=== PATIENT | male | born 1980 | race Caucasian/White ===

== ENCOUNTER 2020-09-22 13:12 | Emergency (ER) | payer BC ==
--- OUTSIDE RECORDS SUMMARY | 2020-09-22 13:16 | XMS REPORT | Continuity of Care Document ---
:1980 Author Organization [facility] t Address [address] [place] [address] Dr. Hector [address] [place] [address] Care Team Providers Name Role Phone Razia SCHWARTZ Attending Clinician Unavailable SUSHILA Admitting Clinician Unavailable DR Razia LUNDBERG Admitting Clinician Unavailable Problems This patient has no known problems. Allergies, Adverse Reactions, Alerts This patient has no known allergies or adverse reactions. Social History Smoking Status Start Date Stop Date Source Never smoker [facility] ([facility]) Medications Ordered Filled Start Stop Current Ordering Indication Dosage Frequency Signature Comments Components Source Medication Medication Date Date Medication? Clinician (SIG) Name Name Cephalexin Cephalexin Yes 500mg BID [facility] Doxycycline Doxycycline Yes 100mg BID [facility] Hy[facility]ate [facility]ate [facility] ([facility]) Magnesium Magnesium Yes 1applic BID [facility] Sulfate [facility] ([facility]/SA) Prednisone Prednisone Yes 20MG [facility] 20 [facility] Oral 20 MG Oral [facility] - Tablet [facility] (LUF/LI V/SA) Vital Signs Vital Name Observation Time Observation Value Comments Source Pulse Rate 2018-10-04 13:02:00 69 /min [facility] Respiratory Rate 2018-10-04 13:02:00 17 /min [facility] (LUF/[facility]) O2% BldC Oximetry 2018-10-04 13:02:00 100 % [facility] (LUF/[facility]/SA) BP Systolic 2018-10-04 13:02:00 155 mm[Hg] [facility] ([facility]) BP Diastolic 2018-10-04 13:02:00 91 mm[Hg] [facility] ([facility] Body Temperature 2018-10-04 07:56:00 98 F DOUG Steinberg [facility] (LUF/RILEY/SA) Weight Measured 2018-10-03 23:40:00 280.86 lbs DOUG Laureano t [facility] (LUF/RILEY/SA) Procedures This patient has no known procedures. Encounters Start End Encounter Admission Attending Care Care Encounter Source Date/Time Date/Time Type Type Clinicians Facility Department ID 2018-10-03 2018-10-04 CE[facility]ULITIS E [facility] [id number] [facility] [address] ([address], V/SA) [place] [id number] 2017-12-15 2017-12-15 CHEST PAIN 3 TOÑO, [place] [id number] 12:26:00 23:59:00 ON HEIKE A [facility]AXTON [facility] [address] ([address], V/SA) [place] [id number] Results Test Description Test Time Test Comments Results Result Comments Source [facility] 2018-10-04 04:51:00 Test Item Value Reference Range Interpretation Comme nts Sodium (test code = NA) 142 mmol/l 137-145 Potassium (test code = K) 4.3 mmol/l 3.5-5.1 Chloride (test code = CL) 107 mmol/l 98-107 Calcium (test code = 8.7 mg/dl 8.5-10.1 CALC) CO2 (test code = CO2) 28 mmol/l 21-32 Glucose (test code = GLU) 119 mg/dl 74-106 H BUN (test code = BUN) 14.0 mg/dl 7.0-18.0 Creatinine (test code = 0.9 mg/dl 0.5-1.3 CREA) EGFR if >60 mL/min/1.73m\\S\\2 (test code = EGFRAA) EGFR if Non- >60 mL/min/1.73m\\S\\2 Estimated Glomerular Peruvian (test code = Filtra tion Rate (eGFR) EGFRNA) Reference Inter vals Decision Points for 18 y ears and older and avera ge body mass: >= 60 Does not exclu de kidney disease. 30 - 5 9 Suggests modera te chronic kidney disease and indicates the need for fu rther investigation i ncluding assessment of p roteinuria and ca rdiovascular factors. < 30 Usually indicat es a need for referral for as sessment and management of c hronic kidney failure. CBC WITH AUTO [id number] 04:47:00 Test Item Value Reference Range Interpretation Comments WBC (test code = 11.75 4.80-10.80 H WBC) 10\\S\\3/ul RBC (test code = 4.06 10\\S\\6/ul 4.70-6.10 L RBC) Hemoglobin (test 13.3 gm/dl 14.0-18.0 L code = HGB) Hematocrit (test 37.1 % 42.0-50.0 L code = HCT) MCV (test code = 91.4 fL 80.0-94.0 MCV) MCH (test code = 32.8 pg 27.0-31.0 H MCH) MCHC (test code = 35.8 gm/dl 33.0-37.0 MCHC) RDW (test code = 11.5 % 11.5-14.5 RDWVC) Platelet (test code 209 10\\S\\3/ul 130-400 = PLT) MPV (test code = 10.7 fL 7.4-10.4 A "NOT MEASUR ED" MPV) RESULTS ARE DIS PLAYED WHEN THE INSTRU MENT HAS A SUPPRESSE D OR UNREPORTABLE RE SULT. THIS WILL MOST OFTEN HAPPEN WITH THE MPV WHEN THERE IS A N ABNORMAL PLATEL ET DISTRIBUTION DU E TO A CRITICAL LOW VA LUE OR PLATELET CLUMPI NG. THE RDW MAY BE SUPPRESSED IF T HERE ARE MULTIPLE PE AKS PRESENT ON THE RBC HISTOGRAM. IN THIS CASE, A MANUAL REVIEW OF THE SLIDE WI LL BE PERFORMED, AND RBC MORPHOLOGY WILL BE NOTED ON THE RE PORT. NE% (test code = 74.1 % 42.0-75.0 NE) LY% (test code = 19.2 % 13.0-42.0 LY) MO% (test code = 6.0 % 4.0-14.0 MO) EO% (test code = 0.0 % 1.0-5.0 L EO) BA% (test code = 0.2 % 0.0-3.0 BA) IG% (test code = 0.5 % 0.0-0.4 H IG%) ED2 XR HAND MIN [id number] 10:04:33Procedure: ED2 XR HAND MIN 3VWS Exam Date: 10/03/2018 9:18 AMOrdering Provider: MERLINE ABDOClinical Indication: [id number]: Swelling of handComparison: None.Findings:Bones are in normal alignment. Joint spaces preserved. No acute fracture ordislocation. No radio- opaque foreign body. Soft tissues swelling of the seconddigit.Impression:No acute fracture or dislocation. No radio-opaque foreign body. No evidence foracute osteomyelitis.This final report was electronically signed by Dr Jeanmarie Rossi DO 10/03/20189:58 AMDictated By: BITA ROSSIINDate: 10/03/2018 09:58ED2 [id number] 09:44:00 Test Item Value Reference Range Interpretation Comments Sodium (test code = NA) 147 mmol/l 128-145 H Potassium (test code = K) 4.4 mmol/l 3.6-5.1 CO2 (test code = CO2) 31 mmol/l 18-33 Chloride (test code = CL) 109 mmol/l 98-108 H Glucose (test code = GLU) 86 mg/dl 73-118 Calcium (test code = CALC) 9.3 mg/dl 8.0-10.3 BUN (test code = BUN) 13 mg/dl 7-22 Creatinine (test code = CREA) 0.8 mg/dl 0.6-1.2 Alkaline Phos (test code = ALKP) 48 U/L 42-141 ALT (SGPT) (test code = ALT) 27 U/L 10-47 AST (SGOT) (test code = AST) 27 U/L 11-38 Total Bilirubin (test code = TBIL) 0.6 mg/dl 0.2-1.6 Albumin (test code = ALB) 3.6 gm/dl 3.3-5.5 T Protein (test code = TP) 7.1 gm/dl 6.4-8.1 ED2 [id number] 09:33:00 Test Item Value Reference Range Interpretation Comments WBC (test code = WBC) 4.8 10\\S\\9/L 3.5-10.0 LY% (test code = LY) 44.7 % 15.0-50.0 MIDS% (test code = MIDS) 7.3 % 2.0-15.0 Granulocytes % (test code = 48.0 % 35.0-80.0 GRA%) Lymphocytes (test code = 2.1 10\\S\\9/L 0.5-5.0 LYMPH) MID (test code = MID) 0.4 10\\S\\9/L 0.1-1.5 Granulocytes (test code = 2.3 10\\S\\9/L 1.2-8.0 GRAN) RBC (test code = RBC) 4.60 10\\S\\12/L 3.50-5.50 Hemoglobin (test code = HGB) 14.4 gm/dl 11.5-16.5 Hematocrit (test code = HCT) 42.5 % 35.0-55.0 MCV (test code = MCV) 92.3 fL 75.0-100.0 MCH (test code = MCH) 31.3 pg 25.0-35.0 MCHC (test code = MCHC) 33.9 gm/dl 31.0-38.0 RDW % (test code = RDW%) 12.6 % 11.0-16.0 Platelet (test code = PLT) 188 10\\S\\9/L 100-400 MPV (test code = MPV) 8 fL 8.0-11.0 A TIC XR CHEST 2 PA [id number] 16:18:29Procedure: TIC XR CHEST 2 PA LATERALOrder Date: 12/15/2017 12:43 PMOrdering Provider: DR HEIKE Ackermaninical Indication: chest pain on breathingComparison: NoneFindings:Cardiac size is normal.Pulmonary vasculature is normal.Mediastinal contour is normal.Aortic contour is normal.There is no consolidation or effusion.There is no mass or pneumothorax.There is no evidence of active tuberculosis.There is no skeletal abnormality.Impression: Negative PA and lateral views of the chest.This final report was electronically signed by Dr Bossman De Paz MD 12/15/20174:12 PMDictated By: BOSSMAN DE PAZDate: 12/15/2017 16:18
[2020-09-22] MEDS ORDERED: HYDROCODONE/APAP 10/325 TAB ONE (14:32)
--- NOTE | 2020-09-22 14:52 | ER ---
Nurse's Notes [facility] Name: Connor Denny Age: 40 yrs Sex: Male : 1980 Arrival Date: 09/22/2020 Time: 13:13 Bed 17 Private MD: Diagnosis: Unspecified dislocation of left shoulder joint Presentation: 09/22 13:30 Chief complaint: Patient states: R shoulder pain and possible dislocation after falling ss [place]. Coronavirus screen: Client denies travel out of the [place] in the last 14 days. Ebola Screen: Patient denies exposure to infectious person. Patient denies travel to an Ebola-affected area in the 21 days before illness onset. Initial Sepsis Screen: Does the patient meet any 2 criteria? No. Patient's initial sepsis screen is negative. Does the patient have a suspected source of infection? No. Patient's initial sepsis screen is negative. Risk Assessment: Do you want to hurt yourself or someone else? Patient reports no desire to harm self or others. Onset of symptoms was September 22, 2020. 13:30 Method Of Arrival: Ambulatory ss 13:30 Acuity: RAY 3 ss Historical: - Allergies: 13:34 No Known Allergies; ss - Home Meds: 13:34 Lexapro Oral [Active]; ss - PMHx: 13:34 None; ss - PSHx: 13:34 L shoulder; ss - Immunization history:: Adult Immunizations up to date. - Social history:: Smoking status: Patient denies any tobacco usage or history of. Screenin:06 Abuse screen: Denies threats or abuse. Denies injuries from another. Nutritional zb screening: No deficits noted. Tuberculosis screening: No symptoms or risk factors identified. Fall Risk None identified. Assessment: 14:06 General: Appears uncomfortable, Behavior is restless. Pain: Complains of pain in zb anterior aspect of right shoulder and posterior aspect of right shoulder Pain currently is 8 out of 10 on a pain scale. Quality of pain is described as aching, dull, tender. Neuro: Level of Consciousness is awake, alert, obeys commands, Oriented to person, place, time, situation. Cardiovascular: Capillary refill < 3 seconds Patient's skin is warm and dry. Respiratory: Airway is patent Respiratory effort is even, unlabored. Musculoskeletal: Range of motion: limited in right shoulder Swelling present in posterior aspect of right shoulder. Injury Description: right shoulder dislocation. 14:45 Reassessment: ecp at bedside discussing care. zb 14:56 Reassessment: Patient appears in no apparent distress at this time. Patient and/or zb family updated on plan of care and expected duration. Pain level reassessed. Patient is alert, oriented x 3, equal unlabored respirations, skin warm/dry/pink. patient ambulated out w/ . sling in place. Vital Signs: 13:30 BP 151 / 101; Pulse 92; Resp 18; Temp 97.8(TE); Pulse Ox 95% ; Weight 124.74 kg; Height ss 6 ft. 2 in. (187.96 cm); Pain 7/10; 14:57 BP 140 / 90; Pulse 88; Resp 16; Pulse Ox 100% on R/A; zb 13:30 Body Mass Index 35.31 (124.74 kg, 187.96 cm) ss ED Course: 13:13 Patient arrived in ED. mr 13:26 Michael Zaman, RHETT is PHCP. pm1 13:26 Quinton Samuels MD is Attending Physician. pm1 13:33 Triage completed. ss 13:34 Arm band placed on right wrist. ss 13:55 Shoulder Right (2 View) XRAY In Process Unspecified. EDMS 13:56 Court Engel, IMMANUEL is Primary Nurse. zb 14:49 Shoulder (1 View) XRAY In Process Unspecified. EDMS 14:57 Patient has correct armband on for positive identification. Bed in low position. Call zb light in reach. Side rails up X 1. Pulse ox on. NIBP on. 14:57 Sling applied to right arm. zb 14:57 No provider procedures requiring assistance completed. Patient did not have IV access zb during this emergency room visit. Administered Medications: 14:14 Drug: [place] (HYDROcodone-acetaminophen) 10 mg-325 mg 1 tabs {Note: RASS 0.} Route: PO; zb Outcome: 14:51 Discharge ordered by . pm1 14:57 Discharged to home ambulatory, with family. zb 14:57 Condition: stable 14:57 Discharge instructions given to patient, Instructed on discharge instructions, follow up and referral plans. Demonstrated understanding of instructions, follow-up care. 14:58 Patient left the ED. zb Signatures: Dispatcher [employer] ED Balta Hetal mr Marion Walker RN RN ss Michael Zaman, RHETT METAL CONTAINER MAKER pm1 Court Engel RN RN zsharmin Corrections: (The following items were deleted from the chart) 14:14 14:14 [place] (HYDROcodone-acetaminophen) 10 mg-325 mg 1 tabs PO zb zb
--- NOTE | 2020-09-22 14:52 | EDPHYS ---
Physician Documentation [facility] Name: Connor Denny Age: 40 yrs Sex: Male : 1980 Arrival Date: 09/22/2020 Time: 13:13 Bed 17 Private MD: ED Physician Quinton Samuels HPI: 09/22 14:09 This 40 yrs old Male presents to ER via Ambulatory with complaints of pm1 Shoulder Injury. 14:09 The patient or guardian complains of dislocation. right shoulder. Context: The problem pm1 [place] resulted from a fall, while playing football. Onset: The symptoms/episode began/occurred just prior to arrival. Modifying factors: the symptoms are alleviated by remaining still, The symptoms are aggravated by movement. Associated signs and symptoms: Pertinent negatives: Numbness in right arm tingling, Weakness in right arm. Severity of symptoms: in the emergency department the symptoms are unchanged. Treatment prior to arrival includes: no previous treatment. The patient has experienced similar episodes in the past, several times. The patient has not recently seen a physician. Historical: - Allergies: 13:34 No Known Allergies; ss - Home Meds: 13:34 Lexapro Oral [Active]; ss - PMHx: 13:34 None; ss - PSHx: 13:34 L shoulder; ss - Immunization history:: Adult Immunizations up to date. - Social history:: Smoking status: Patient denies any tobacco usage or history of. ROS: 14:09 Constitutional: Negative for fever, chills, and weight loss, Cardiovascular: Negative pm1 for chest pain, palpitations, and edema, Respiratory: Negative for shortness of breath, cough, wheezing, and pleuritic chest pain. 14:09 Skin: Negative for injury, rash, and discoloration, Neuro: Negative for headache, weakness, numbness, tingling, and seizure. 14:09 MS/extremity: Positive for pain, of the right shoulder, Negative for paresthesias, tingling. 14:09 All other systems are negative. Exam: 14:09 Constitutional: This is a well developed, well nourished patient who is awake, alert, pm1 and in no acute distress. Head/Face: Normocephalic, atraumatic. 14:09 Skin: Warm, dry with normal turgor. Normal color with no rashes, no lesions, and no evidence of cellulitis. 14:09 Eyes: Exam is negative for acute changes, Extraocular movements: intact throughout, Conjunctiva: normal. 14:09 ENT: Mouth: Lips: normal, Oral mucosa: normal, pink and intact, moist. 14:09 Cardiovascular: Rate: normal, Rhythm: regular, Pulses: no pulse deficits are appreciated. 14:09 Respiratory: Exam negative for acute changes, respiratory distress, shortness of breath. 14:09 Musculoskeletal/extremity: Extremities: grossly normal except: noted in the right shoulder: deformity, Circulation is intact in all extremities. Pulses: noted to be 2+ in the right radial artery, the right hand Sensation intact. 14:09 Neuro: Exam negative for acute changes, Orientation: is normal, Mentation: is normal, Motor: is normal, moves all fours. Vital Signs: 13:30 BP 151 / 101; Pulse 92; Resp 18; Temp 97.8(TE); Pulse Ox 95% ; Weight 124.74 kg; Height ss 6 ft. 2 in. (187.96 cm); Pain 7/10; 14:57 BP 140 / 90; Pulse 88; Resp 16; Pulse Ox 100% on R/A; zb 13:30 Body Mass Index 35.31 (124.74 kg, 187.96 cm) ss Procedures: 14:54 Reduction: of the right shoulder, using traction, Immobilized with shoulder pm1 immobilizer. Patient tolerated well. Post reduction film - reveals normal alignment. MDM: 13:34 Patient medically screened. pm1 14:50 Data reviewed: vital signs. Data interpreted: Pulse oximetry: on room air is 95 %. pm1 Interpretation: normal. Counseling: I had a detailed discussion with the patient and/or guardian regarding: the historical points, exam findings, and any diagnostic results supporting the discharge/admit diagnosis, radiology results, the need for outpatient follow up, for definitive care, a orthopedic surgeon, to return to the emergency department if symptoms worsen or persist or if there are any questions or concerns that arise at home. 09/22 13:27 Order name: Shoulder Right (2 View) XRAY pm1 09/22 14:20 Order name: Shoulder (1 View) XRAY pm1 09/22 14:20 Order name: Shoulder Immobilizer; Complete Time: 14:42 pm1 Administered Medications: 14:14 Drug: [place] (HYDROcodone-acetaminophen) 10 mg-325 mg 1 tabs {Note: RASS 0.} Route: PO; zb Disposition: 09/22/20 14:51 Discharged to Home. Impression: Unspecified dislocation of left shoulder joint. - Condition is Stable. - Discharge Instructions: Shoulder Dislocation, How to Use a Shoulder Immobilizer. - Medication Reconciliation Form, Thank You Letter, Antibiotic Education, Prescription Opioid Use form. - Follow up: Emergency Department; When: As needed; Reason: Worsening of condition. Follow up: Private Physician; When: 2 - 3 days; Reason: Recheck today's complaints, Continuance of care, Re-evaluation by your physician. - Problem is new. - Symptoms have improved. Signatures: Dispatcher [employer] EDMS Marion Walker RN RN ss Marinas, Patrick, NP HOT SAW OPERATOR pm1 Court Engel RN RN zsharmin Corrections: (The following items were deleted from the chart) 14:58 14:51 09/22/2020 14:51 Discharged to Home. Impression: Unspecified dislocation of left zb shoulder joint. Condition is Stable. Forms are Medication Reconciliation Form, Thank You Letter, Antibiotic Education, Prescription Opioid Use. Follow up: Emergency Department; When: As needed; Reason: Worsening of condition. Follow up: Private Physician; When: 2 - 3 days; Reason: Recheck today's complaints, Continuance of care, Re-evaluation by your physician. Problem is new. Symptoms have improved. pm1
[2020-09-22 15:06] VITALS: TEMP 97.8
[2020-09-22 15:07] VITALS: BP 140/90; O2SAT 100
--- NOTE | 2020-09-22 15:07 | RAD REPORT ---
EXAM DESCRIPTION: Shoulder Right 2 View - 09/22/2020 1:55 pm CLINICAL HISTORY: PAIN COMPARISON: No comparisonsNo comparisons TECHNIQUE: AP and scapular Y-views obtained. FINDINGS: Anterior dislocation of the humeral head is present. No fracture component seen. AC joint is intact. No rib or upper lung parenchymal abnormality seen. No suspicious soft tissue finding. IMPRESSION: Anterior dislocation of the right humeral head.
--- NOTE | 2020-09-22 15:11 | RAD REPORT ---
EXAM DESCRIPTION: RAD - Shoulder 1 View - 09/22/2020 2:49 pm FINDINGS: Right humeral head has been reduced to anatomic position. No fracture or acute finding seen. AC joint remains normal in appearance.
== END 2020-09-22 14:58 | disposition home or self-care (01) ==
LOC: ER 13:12
PROC: 0RSJXZZ Reposition Right Shoulder Joint, External Approach (ICD-10-PCS; principal; 2020-09-22)
DX: S43.004A Unspecified dislocation of right shoulder joint, initial encounter (principal); W19.XXXA Unspecified fall, initial encounter; Y93.61 Activity, american tackle football; Y92.832 Beach as the place of occurrence of the external cause
CPT/HCPCS: 73020; 99284